=== PATIENT | female | born 1980 ===

== ENCOUNTER 2020-03-29 07:42 | Outpatient (CLI) | payer OTHER, SELFPAY ==
[2020-03-30 12:54] LABS: COVID-19 RT-PCR Result NEGATIVE (Negative)
== END 2020-03-29 08:02 ==
PROVIDERS: Visit Provider Surgery
DX: Z11.59 Encounter for screening for other viral diseases (principal); Z01.818 Encounter for other preprocedural examination
CPT/HCPCS: U0003

== ENCOUNTER 2020-07-22 20:16 | Outpatient (REF) | payer SELFPAY ==
[2020-07-23 15:51] LABS: COVID-19 RT-PCR Result NEGATIVE (Negative)
== END 2020-07-22 20:36 ==
LOC: LBN 20:16
PROVIDERS: Visit Provider Nurse Practitioner Adult Health
DX: Z11.52 Encounter for screening for COVID-19 (principal)
CPT/HCPCS: U0003

== ENCOUNTER 2020-09-20 20:48 | Outpatient (REF) | payer OTHER, SELFPAY ==
[2020-09-20 16:32] LABS: HCT 41.4 % (36.0-46.0); MCH 31.7 pg (27.0-33.0); MCHC 33.8 % (32.0-36.0); MCV 93.7 fL (80-95); MPV 9.4 fL (8.0-11.0); Platelet Count 268 10^3/uL (130-400); RBC 4.42 10^6/uL (3.93-5.22); RDW 13.4 % (11.7-14.6); RDW-SD 46.2 fL; WBC 6.28 10^3/uL (4.4-10.8)
[2020-09-20 16:50] LABS: Iron 132 ug/dL (50-170); Total Iron Binding Capacity 406 ug/dL (250-450); Transferrin Sat 33 % (15-50)
[2020-09-20 17:16] LABS: ALT 32 U/L (14-59); AST 19 U/L (15-37); Albumin 3.9 g/dL (3.4-5.0); Alkaline Phosphatase 62 U/L (46-116); Anion Gap 12.2 mmol/L (3-11); BUN 11 mg/dL (7-18); Bilirubin, Total 0.4 mg/dL (0.2-1.0); CO2 23.8 mmol/L (21.0-32.0); CREATININE 0.8 mg/dL (0.55-1.02); Calcium 8.7 mg/dL (8.5-10.1); Chloride 105 mmol/L (98-107); Ferritin 22 ng/mL (8-252); Glucose 108 mg/dL (74-106); Magnesium 2.1 mg/dL (1.8-2.4); Potassium 4.3 mmol/L (3.5-5.1); Sodium 141 mmol/L (136-145); TSH (W/Ref FT4) 1.17 uIU/mL (0.36-3.74); Total Protein 7.1 g/dL (6.4-8.2); Vitamin B12 517 pg/mL (193-986)
[2020-09-22 04:54] LABS: Vitamin D 25 Total 14.9 ng/ml (30-100)
== END 2020-09-20 20:49 | disposition home or self-care (01) ==
LOC: NCHCN 20:48
PROVIDERS: Visit Provider Nurse Practitioner Family
DX: R53.83 Other fatigue (principal); K90.0 Celiac disease
CPT/HCPCS: 80053; 82306; 85027; 82607; 82728; 83540; 83550; 83735; 84443

== ENCOUNTER 2021-03-10 12:52 | Outpatient (REF) | payer OTHER, SELFPAY ==
[2021-03-13 17:17] LABS: COVID-19 RT-PCR Result Not Detected ((See Note))
== END 2021-03-10 12:53 | disposition home or self-care (01) ==
LOC: LBN 12:52
PROVIDERS: Visit Provider Family Medicine
DX: Z20.822 Contact with and (suspected) exposure to COVID-19 (principal)
CPT/HCPCS: U0003